=== PATIENT | female | born 1960 | race Caucasian/White ===

== ENCOUNTER → 2021-09-20 10:16 | Outpatient (BNVA) | payer MEDICARE, MEDICAID, SELFPAY | PROVIDERS: Family Provider Nurse Practitioner Family; Visit Provider Registered Nurse | DX: Z79.899 Other long term (current) drug therapy (principal) | CPT/HCPCS: 36415; 80053; 82306; 84443; 85025 ==

== ENCOUNTER 2025-03-23 14:49 | Emergency (ER) | payer OTHER, MEDICAID, SELFPAY ==
[2025-03-23 14:55] VITALS: BP 129/68; PULSE 77; RESP 18; TEMP 36.7; O2SAT 97; BMI 38.6
--- NOTE | 2025-03-23 15:40 | ECG_ITS ---
[facility] Test Date: 2025-03-23 Pat Name: Rosa Shafer Department: Room: Gender: Female [employer] Manager: HAO: 1960 Requested By: Juwan Roth Order Number: [id number] Angel Luis MD: Ruperto Smith M.D. Measurements Intervals [place] Rate: 79 P: 29 ID: [id number] QRS: -9 QRSD: 88 T: 37 QT: 351 QTc: 403 Interpretive Statements SINUS RHYTHM Compared to ECG 08/11/2017 17:11:26 No significant changes Electronically Signed On 03-24-2025 09:17:08 CDT by Ruperto Smith M.D. [id number]
[2025-03-23 15:55] LABS: Basophils % 0.3 %; Eosinophils # 0.1 10^3/uL (0.0-0.8); Eosinophils % 0.9 %; Hematocrit 38.6 % (36-47); Lymphocytes # 1.2 10^3/uL (0.8-4.8); Lymphocytes % 12.9 %; Mean Corpuscular HGB Conc 32.4 g/dL (30-55); Mean Corpuscular Hemoglobin 28.9 pg (27-33); Mean Corpuscular Volume 89.4 fl (85-98); Mean Platelet Volume 9.5 fL (7.4-10.4); Monocytes # 0.3 10^3/uL (0.2-0.9); Monocytes % 3.5 %; Neutrophils # 7.43 10^3/uL (1.8-7.7); Nucleated Red Blood Cells % 0 %; Platelet Count 199 10^3/cmm (157-399); Red Blood Count 4.32 10^6/uL (3.85-5.65); Red Cell Distribution Width 13.2 % (12.1-15.1); White Blood Count 9.07 10^3/uL (3.29-11.43)
--- NOTE | 2025-03-23 16:10 | W.ED.SYNCOPE ---
HPI - Syncope General: Chief Complaint: Syncope Stated Complaint: syncope Time Seen by Provider: 03/23/25 15:37 History of Present Illness: 64-year-old female presents following a syncope while she was getting groceries at [facility]. Patient has had multiple syncope events in the past and has been evaluated and they are unsure the cause. Patient denies any chest pain shortness of breath or any other symptoms prior or after. She has no symptoms upon arrival to the ER. She just want to be checked out. Associated symptoms: Deny abdominal pain, chest pain, fever(s), headache(s) or nausea Related Data Home Medications ?Medication ?Instructions ?Recorded ?Confirmed aspirin 81 mg tablet,delayed 81 mg PO DAILY 12/04/19 03/23/25 release (Adult Aspirin Regimen) albuterol sulfate 90 mcg/actuation 2 inh inhalation Q6H 03/23/25 03/23/25 aerosol inhaler atorvastatin 40 mg tablet 40 mg PO DAILY 03/23/25 03/23/25 bupropion HCl 300 mg 24 hr tablet, 300 mg PO DAILY 03/23/25 03/23/25 extended release dapagliflozin propanediol 10 mg 10 mg PO DAILY 03/23/25 03/23/25 tablet (Farxiga) dulaglutide 4.5 mg/0.5 mL 0.5 mg SUBCUT Q7D 03/23/25 03/23/25 subcutaneous pen injector (Trulicity) famotidine 40 mg tablet 40 mg PO BID 03/23/25 03/23/25 gabapentin 100 mg capsule 200 mg PO TID 03/23/25 03/23/25 insulin glargine 100 unit/mL (3 8 unit SUBCUT QAM 03/23/25 03/23/25 mL) subcutaneous pen (Lantus Solostar U-100 Insulin) lisinopril 10 mg tablet 15 mg PO DAILY 03/23/25 03/23/25 montelukast 10 mg tablet 10 mg PO QPM 03/23/25 03/23/25 omeprazole 20 mg capsule,delayed 20 mg PO DAILY 03/23/25 03/23/25 release oxybutynin chloride 10 mg 10 mg PO DAILY 03/23/25 03/23/25 tablet,extended release 24 hr ropinirole 2 mg tablet 2 mg PO TID 03/23/25 03/23/25 Previous Rx's ?Medication ?Instructions ?Recorded nitrofurantoin 100 mg PO BID 7 days #14 caps 03/23/25 monohydrate/macrocrystals 100 mg capsule (Macrobid) Allergies Allergy/AdvReac Type Severity Reaction Status Date / Time amoxicillin Allergy unknown Verified 12/04/19 10:00 cefaclor (From Ceclor) AdvReac unkown Verified 12/04/19 10:00 Review of Systems Const: Denies: fever(s) or chills Card: Reports: syncope; Denies: chest pain, palpitations or irregular heart rhythm Resp: Denies: dyspnea, productive cough or non-productive cough GI: Denies: abdominal pain, nausea or vomiting Musc: Denies: neck pain or back pain Skin/Breast: Denies: rash Neuro: Denies: headache(s) Psych: Denies: anxiety or depression [facility] PFSH: Medical History (Updated 03/23/25 @ 17:15 by Juwan Roth DO) Encounter for observation for other suspected diseases and conditions ruled out Snoring Insomnia Chronic post-traumatic stress disorder Major depressive disorder, recurrent, severe with psychotic symptoms Social History (Updated 12/24/19 @ 12:10 by Maricruz Corey LPN) Smoking and tobacco/nicotine status: never used tobacco/nicotine Physical Exam Const: COMMON NORMALS: no acute distress, patient oriented x3 and alert Resp: COMMON NORMALS: normal respiratory effort, No retractions and No use of accessory muscles Cardio: COMMON NORMALS: regular rate and regular rhythm RATE: regular rate RHYTHM: regular rhythm Extremity: COMMON NORMALS: normal to inspection, full ROM and capillary refill normal Neuro: COMMON NORMALS: patient oriented x3, CN's II-XII intact bilaterally, moves all extremities, no focal motor deficits and no sensory deficits noted SENSORIUM/ORIENTATION: Yes alert Psych: COMMON NORMALS: mental status grossly normal, cooperative and normal affect Skin: COMMON NORMALS: no rashes or lesions noted, turgor normal and no jaundice GENERAL SKIN EXAM: no rashes or lesions noted and turgor normal Course Vital Signs: Vital signs: Vital Signs Temperature 98.1 F 03/23/25 14:55 Pulse Rate 89 03/23/25 17:32 Respiratory Rate 18 03/23/25 17:32 Blood Pressure 122/77 03/23/25 17:32 Pulse Oximetry 95 05/04/25 17:32 Oxygen Delivery Me thod Room Air 03/23/25 17:17 MDM - Syncope Medical Decision Making Patient's diagnostics were ordered reviewed interpreted by me. Patient's urinalysis is consistent with a likely urinary tract infection. Patient otherwise has no acute findings. Patient's EKG is negative for any acute findings. Patient stable and will be discharged home. Lab Data 03/23/25 15:49 03/23/25 15:49 Laboratory Results WBC 9.07 10^3/uL (3.29-11.43) 03/23/25 15:49 RBC 4.32 10^6/uL (3.85-5.65) 03/23/25 15:49 Hgb 12.50 g/dL (11.27-16.99) 03/23/25 15:49 Hct 38.6 % (36-47) 03/23/25 15:49 MCV 89.4 fl (85-98) 03/23/25 15:49 MCH 28.9 pg (27-33) 03/23/25 15:49 MCHC 32.4 g/dL (30-55) 03/23/25 15:49 RDW 13.2 % (12.1-15.1) 03/23/25 15:49 Plt Count 199 10^3/cmm (157-399) 03/23/25 15:49 MPV 9.5 fL (7.4-10.4) 03/23/25 15:49 Neut % (Auto) 82.0 % 03/23/25 15:49 Lymph % (Auto) 12.9 % 03/23/25 15:49 [place] % (Auto) 3.5 % 03/23/25 15:49 Eos % (Auto) 0.9 % 03/23/25 15:49 Baso % (Auto) 0.3 % 03/23/25 15:49 Neut # (Auto) 7.43 10^3/uL (1.8-7.7) 03/23/25 15:49 Lymph # (Auto) 1.2 10^3/uL (0.8-4.8) 03/23/25 15:49 [place] # (Auto) 0.3 10^3/uL (0.2-0.9) 03/23/25 15:49 Eos # (Auto) 0.1 10^3/uL (0.0-0.8) 03/23/25 15:49 Baso # (Auto) 0.0 10^3/uL (0.0-0.1) 03/23/25 15:49 Nucleated RBC % (auto) 0 % 03/23/25 15:49 Nucleated RBCs # 0.0 /100WBC 03/23/25 15:49 Sodium 137 mmol/L (136-145) 03/23/25 15:49 Potassium 6.0 mmol/L (3.5-5.1) H 03/23/25 15:49 Chloride 103 mmol/L (98-107) 03/23/25 15:49 Carbon Dioxide 23 mmol/L (22-29) 03/23/25 15:49 Anion Gap 17.0 (5-19) 03/23/25 15:49 BUN 26 mg/dL (8-23) H 03/23/25 15:49 Creatinine 2.1 mg/dL (0.5-0.9) H 03/23/25 15:49 GFR Calculation 23.7 mL/min (90-130) L 03/23/25 15:49 Glucose 124 mg/dL (65-115) H 03/23/25 15:49 Calculated Osmolality 290 mOsm/kg (285-295) 03/23/25 15:49 Calcium 9.5 mg/dL (8.5-10.5) 03/23/25 15:49 Total Bilirubin 0.4 mg/dL (0.15-1.2) 03/23/25 15:49 AST 15 U/L (0-32) 03/23/25 15:49 ALT 14 U/L (0-33) 03/23/25 15:49 Alkaline Phosphatase 114 U/L (35-105) H 03/23/25 15:49 Troponin T Baseline 11 ng/L (0-10) H 03/23/25 15:49 Total Protein 7.6 g/dL (6.6-8.7) 03/23/25 15:49 Albumin 4.6 g/dL (3.5-5.2) 03/23/25 15:49 Globulin 3.0 g/dL (1.3-4.6) 03/23/25 15:49 Urine Color Yellow (Yellow) 03/23/25 16:13 Urine Appearance Slightly cloudy (CLEAR) 03/23/25 16:13 Urine pH 5.5 (5-7) 03/23/25 16:13 Ur Specific [place] 1.025 (1.005-1.030) 03/23/25 16:13 Urine Protein Trace (Negative) 03/23/25 16:13 Urine Glucose (UA) 3+ (Normal) H 03/23/25 16:13 Urine Ketones Trace (Negative) H 03/23/25 16:13 Urine Blood Neg (Negative) 03/23/25 16:13 Urine Nitrate Positive (Negative) A 03/23/25 16:13 Urine Bilirubin Neg (Negative) 03/23/25 16:13 Urine Urobilinogen 1.0 mg/dL (Negative) 03/23/25 16:13 Ur Leukocyte Esterase 1+ (Negative) H 03/23/25 16:13 Urine RBC Rare /hpf (0-2) 03/23/25 16:13 Urine WBC 40-55 /hpf (0-5) H 03/23/25 16:13 Ur Squamous Epith Cells 5-10 /hpf (0-5) H 03/23/25 16:13 Amorphous Sediment Not Reportable 03/23/25 16:13 Urine Bacteria 4+ /hpf (NONE) H 03/23/25 16:13 Urine Yeast 1+ /hpf H 03/23/25 16:13 No radiology studies performed this visit Discharge Plan Discharge Patient Disposition: Home Clinical Impression: Acute cystitis, Syncope Condition: Stable Prescriptions: New nitrofurantoin monohyd/m-cryst [Macrobid] 100 mg capsule 100 mg PO BID 7 Days Qty: 14 0RF Rx Instructions: must administer with a meal/food No Action aspirin [Adult Aspirin Regimen] 81 mg tablet,delayed release (DR/EC) 81 mg PO DAILY Rx Instructions: 81 mg PO daily; atorvastatin 40 mg tablet 40 mg PO DAILY oxybutynin chloride 10 mg tablet extended release 24hr 10 mg PO DAILY famotidine 40 mg tablet 40 mg PO BID ropinirole 2 mg tablet 2 mg PO TID lisinopril 10 mg tablet 15 mg PO DAILY omeprazole 20 mg capsule,delayed release(DR/EC) 20 mg PO DAILY montelukast 10 mg tablet 10 mg PO QPM gabapentin 100 mg capsule 200 mg PO TID albuterol sulfate 90 mcg/actuation HFA aerosol inhaler 2 inh INHALATION Q6H bupropion HCl 300 mg tablet extended release 24 hr 300 mg PO DAILY insulin glargine [Lantus Solostar U-100 Insulin] 100 unit/mL (3 mL) insulin pen 8 unit SUBCUT QAM dapagliflozin propanediol [Farxiga] 10 mg tablet 10 mg PO DAILY Trulicity 4.5 mg/0.5 mL pen injector 0.5 mg SUBCUT Q7D Discharge Orders: Discharge ED (Routine); Ordered 03/23/25 Ordered By: Juwan Roth Discharge Diet: Usual diet Discharge Activity: Increase activity as tolerated Patient Instructions: Urinary Tract Infection in Older Adults (ED), Opioid Safety, Pain Management Activity Restrictions/Additional Instructions: Be sure you are drink plenty of fluids. Please start your antibiotics either tonight or first thing in the morning. Follow with your primary care provider in about a week. Print Language: Hungarian Coding Level of Care Code ED Protocol Manager for [facility]
[2025-03-23 16:12] LABS: Troponin(5th) Baseline 11 ng/L (0-10)
[2025-03-23 16:15] LABS: Alanine Aminotransferase 14 U/L (0-33); Albumin Level 4.6 g/dL (3.5-5.2); Alkaline Phosphatase 114 U/L (35-105); Aspartate Amino Transferase 15 U/L (0-32); Blood Urea Nitrogen 26 mg/dL (8-23); Calcium 9.5 mg/dL (8.5-10.5); Carbon Dioxide 23 mmol/L (22-29); Chloride 103 mmol/L (98-107); Glomerular Filtration Rate 23.7 mL/min (90-130); Glucose 124 mg/dL (65-115); Osmolality Calculated 290 mOsm/kg (285-295); Sodium 137 mmol/L (136-145); Total Bilirubin 0.4 mg/dL (0.15-1.2); Total Protein 7.6 g/dL (6.6-8.7)
[2025-03-23 16:30] LABS: Bilirubin Urine Neg (Negative); Blood Urine Neg (Negative); Glucose Urine UA 3+ (Normal); Ketones Urine Trace (Negative); Leukocyte Esterase Urine 1+ (Negative); Nitrate Urine Positive (Negative); Protein Urine Trace (Negative); Specific Gravity, Urine 1.025 (1.005-1.030); Urine Appearance Slightly Cloudy (CLEAR); Urine Color Yellow (Yellow); pH Urine 5.5 (5-7)
[2025-03-23 16:31] LABS: Add Urine Microscopic? YES; UA Manual Slide Review YES
[2025-03-23 16:36] LABS: Add Urine Culture? Yes; Bacteria Urine 4+ /hpf; RBC Urine RARE /hpf (0-2); WBC Urine 40-55 /hpf (0-5)
[2025-03-23 17:17] VITALS: BP 144/82; PULSE 87; RESP 16; O2SAT 95
[2025-03-23 17:32] VITALS: BP 122/77; PULSE 89; RESP 18; O2SAT 95
== END 2025-03-23 17:29 | disposition home or self-care (01) ==
PROVIDERS: Emergency Provider Student in an Organized Health Care Education/Training Program
DX: N30.00 Acute cystitis without hematuria (principal); R55 Syncope and collapse; Z79.82 Long term (current) use of aspirin; Z79.4 Long term (current) use of insulin
CPT/HCPCS: 36415; 80053; 81001; 84484; 85025; 87077; 87086; 87186; 93005; 99284